=== PATIENT | male | born 1975 | race Caucasian/White ===

== ENCOUNTER 2021-04-11 14:36 | Emergency (ER) | payer SELFPAY ==
[~2021-04-11] VITALS: Ht 175.3 cm; Wt 131.1 kg
[2021-04-11] MEDS ORDERED: SODIUM CHLORIDE 0.9% 1,000ML IVBOLUS ONE ×2 (15:30→18:00)
--- NOTE | 2021-04-11 15:48 | NUR ---
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
--- NOTE | 2021-04-11 15:49 | NUR ---
collection clerk: Pt to room via WC from lobby at this time.
[2021-04-11 15:57] LABS: BASOPHILS % (AUTO) 1 % (0-1); EOSINOPHILS % (AUTO) 1 % (1-7); LYMPHOCYTES % (AUTO) 11 % (22-44); MEAN CORPUSCULAR HEMOGLOBIN 29.8 pg (27.5-34.5); MEAN CORPUSCULAR HGB CONC 34.2 g/dL (33.2-36.2); MEAN PLATELET VOLUME 10.3 fL (7.4-10.4); MONOCYTES % (AUTO) 6 % (2-9); NEUTROPHILS % (AUTO) 82 % (42-75); PLATELET COUNT 246 x10^3/uL (130-400); RED BLOOD COUNT 6.24 x10^6/uL (4.38-5.82); RED CELL DISTRIBUTION WIDTH 14.1 % (9.4-14.8)
[2021-04-11] MEDS ORDERED: METOCLOPRAMIDE 5 MG/ML, 2ML ONE (15:59)
[2021-04-11] MEDS ORDERED: METOCLOPRAMIDE 5 MG/ML, 2ML IVPush ONE (16:00)
--- NOTE | 2021-04-11 16:04 | NUR ---
task rn: pt to room, piv est, ns and reglan per mar, pt vomiting. ekg in prog. pt has hx afib, on eliquis. parents at bedside. as
[2021-04-11 16:07] LABS: ALANINE AMINOTRANSFERASE 22 U/L (12-78); ALBUMIN 3.4 g/dL (3.4-5.0); ANION GAP 8 mmol/L (5-15); CALCIUM 9.7 mg/dL (8.5-10.1); CHLORIDE 101 mmol/L (98-107); CREATININE 1.02 mg/dL (0.7-1.3)
[2021-04-11 16:09] LABS: ALKALINE PHOSPHATASE 128 U/L (45-117); TOTAL PROTEIN 7.8 g/dL (6.4-8.2)
[2021-04-11] MEDS ORDERED: ZIPRASIDONE 20 MG INJ IM ONE (16:30)
[2021-04-11 17:00] LABS: PH, VENOUS 7.392 pH (7.320-7.420)
[2021-04-11 17:01] LABS: O2 FLOW ROOM AIR L/min
[2021-04-11 17:16] LABS: ACETONE, SERUM Large (80mg/dL) (Negative)
--- NOTE | 2021-04-11 17:33 | NUR ---
PT GOING TO CT NOW
[2021-04-11] MEDS ORDERED: OMNIPAQUE 350 MG/ML, 150 ML BOTTLE ONE (17:51)
--- NOTE | 2021-04-11 18:05 | NUR ---
PT ABLE TO PROVIDE URINE SAMPLE IN URINAL. URINE WALKED TO LAB. PT BACK IN BED AT THIS TIME. CALLLIGHT WITHIN REACH
[2021-04-11 18:17] LABS: MICROSCOPIC AUTO
[2021-04-11] MEDS ORDERED: OLME5TAB4 PO (18:37)
[2021-04-11] MEDS ORDERED: TORS20TA2 PO (18:37)
[2021-04-11] MEDS ORDERED: OMEP40CA8 PO (18:37)
[2021-04-11] MEDS ORDERED: APIX5TAB PO (18:37)
[2021-04-11] MEDS ORDERED: DULO30CA2 PO (18:37)
[2021-04-11] MEDS ORDERED: MONT10TA17 PO (18:37)
[2021-04-11] MEDS ORDERED: ROSU20TA2 PO (18:37)
[2021-04-11] MEDS ORDERED: CARV6.252 PO (18:37)
[2021-04-11] MEDS ORDERED: SPIR25TA5 PO (18:37)
[2021-04-11] MEDS ORDERED: METO10TA2 PO (18:37)
[2021-04-11] MEDS ORDERED: CHOL10003 PO (18:37)
[2021-04-11] MEDS ORDERED: CARVEDILOL 6.25 MG TABLET ONE (18:53)
[2021-04-11] MEDS ORDERED: METOPROLOL 1 MG/ML, 5ML ONE ×2 (18:54→20:32)
[2021-04-11] MEDS ORDERED: METOPROLOL 1 MG/ML, 5ML IVPush ONE ×2 (19:00→20:30)
[2021-04-11] MEDS ORDERED: CARVEDILOL 6.25 MG TABLET PO ONE (19:00)
--- NOTE | 2021-04-11 19:07 | NUR ---
Report received from SHON Lazar. This RN to assume care. MEdicated patient per mar. Tolerated water well. First NS L running slow due to arm position. Advised patient that his arm needs to remain straight to get the fluids in properly. No complaints at this time.
--- NOTE | 2021-04-11 20:40 | NUR ---
, SAAD PEARSON, POINT OF CARE CONTACT FOR RIDE HOME IF DISCHARGED.
[2021-04-11 20:59] VITALS: BP 144/89
--- NOTE | 2021-04-11 21:28 | NUR ---
Mother contacted for ride home. Discharge instructions given. All questions and concerns addressed. Patient ambulatory with a steady gait. Belongings with patient.
== END 2021-04-11 21:39 | disposition home or self-care (01) ==
LOC: ED 19:44
DX: I48.20 Chronic atrial fibrillation, unspecified (principal); E86.0 Dehydration; R11.2 Nausea with vomiting, unspecified; R10.84 Generalized abdominal pain; E10.65 Type 1 diabetes mellitus with hyperglycemia; J44.9 Chronic obstructive pulmonary disease, unspecified; E78.5 Hyperlipidemia, unspecified; I11.0 Hypertensive heart disease with heart failure; I50.9 Heart failure, unspecified; K21.9 Gastro-esophageal reflux disease without esophagitis; Z88.0 Allergy status to penicillin
CPT/HCPCS: 36415; 74177; 80053; 81001; 82010; 82803; 82962; 85025; 87086; 93005; 96361; 96374; 96375; 96376; 99285; J2765; J7030; Q9967